=== PATIENT | female | born 1950 | race Caucasian/White ===

== ENCOUNTER 2020-11-27 13:41 | Inpatient (IN) ==
--- NOTE | 2020-11-27 14:15 | DR.SOBA ---
HPI Time Seen Time Seen by Provider: 11/27/20 13:59 Complaints Chief Complaint Doctors Comments: pt diagnosed with COVID 19 + is here with general malaise fever cough(dry) myalgias and SOB all sx increase with exertion improve with rest COVID-19 Coronavirus risk:travel/contact w/high risk person: No Has patient experienced Coronavirus symptoms: No PMH PMH Past Medical History: Arthritis, Depression, Diabetes, GERD and Hypertension Past Surgical History: Yes Surgical History: , Cholecystectomy and Hysterectomy Family History Family Medical History: Diabetes Mellitus and Cancer Social History Do you use any recreational Drugs:: No Travel Risk Coronavirus risk:travel/contact w/high risk person: No Has patient experienced Coronavirus symptoms: No ROS Review of Systems Constitutional: Chills, Diaphoresis, Fever, Malaise, Weakness, Irritable, Fatigue and Loss of Appetite Eyes: No Symptoms Reported ENTM: No Symptoms Reported Respiratoy: Productive Cough and Short of Breath; negative Hemoptysis Cardiovascular: No Symptoms Reported Gastrointestinal/Abdominal: Food Intolerance Genitourinary: No Symptoms Reported Neurological: No Symptoms Reported Musculoskeletal: Muscle Pain Integumentary: No Symptoms Reported Hematologic/Lymphatic: No Symptoms Reported Endocrine: No Symptoms Reported Psychiatric: Depression All Other Systems: Reviewed and Negative PE Vital Signs Vitals: Temperature 97.2 F Pulse Rate 115 Respiratory Rate 20 Blood Pressure [Left Arm] 113/63 Blood Pressure [Right Arm] 100/55 Blood Pressure 118/70 O2 Sat by Pulse Oximetry 90 General Limitations: No Limitations General Appearance: Alert, In No Apparent Distress and Lethargic Head Head Exam: Normal Inspection, Atraumatic and Normocephalic Eyes Eye exam: Normal Appearance, PERRL and EOMI ENT ENT Exam: Normal Exam, Normal Oropharynx, Normal External Ear Exam and Mucous Membranes Moist Neck Neck Exam: Normal Inspection, Full ROM and Trachea Midline Chest Chest Inspection: Normal Inspection and Symmetric Chest Wall Rise; negative Tenderness Respiratory Respiratory Exam: Normal Lung Sounds Bilat; negative Accessory Muscle Use and Chest Wall Tenderness Respiratory Exam: Bilateral: Clear to Auscultation Cardiovascular Cardiovascular Exam: Regular Rate, Normal Rhythm and Normal Heart Sounds Abdominal Exam Abdominal Exam: Normal Inspection, Normal Bowel Sounds and Soft; negative Distention and Tenderness Extremities Extremities Exam: Normal Inspection and Full ROM; negative Tenderness and Joint Swelling Back Back Exam: Normal Inspection and Full ROM Neurologic Neurological Exam: Alert and Oriented X3 Psychiatric Psychiatric Exam: Normal Affect, Anxious and Flat Affect ROR Labs Reviewed Result Diagrams: 11/27/20 14:40 11/27/20 14:40 Laboratory: WBC 11.6 X10^3/uL (3.6-10.0) H 11/27/20 14:40 RBC 4.64 X10^6/uL (3.5-5.4) 11/27/20 14:40 Hgb 13.4 g/dL (12.0-16.0) 11/27/20 14:40 Hct 40.3 % (36.0-47.0) 11/27/20 14:40 MCV 86.8 fL (80.0-100.0) 11/27/20 14:40 MCH 28.8 pg (27.0-34.0) 11/27/20 14:40 MCHC 33.2 g/dL (33.0-35.0) 11/27/20 14:40 RDW 12.5 % (11.6-16.5) 11/27/20 14:40 Plt Count 191 X10^3/uL (150.0-450.0) 11/27/20 14:40 MPV 9.1 fL (7.4-11.0) 11/27/20 14:40 Neut % (Auto) 86.1 % (42.0-75.0) H 11/27/20 14:40 Lymph % (Auto) 10.1 % (21.0-51.0) L 11/27/20 14:40 [place] % (Auto) 3.6 % (0.0-13.0) 11/27/20 14:40 Eos % (Auto) 0.0 % (0.9-2.9) L 11/27/20 14:40 Baso % (Auto) 0.2 % (0.2-1.0) 11/27/20 14:40 Neut # (Auto) 10.0 x10^3/uL (2.2-4.8) H 11/27/20 14:40 Lymph # (Auto) 1.2 X10^3/uL (1.3-2.9) L 11/27/20 14:40 [place] # (Auto) 0.4 x10^3/uL (0.3-0.8) 11/27/20 14:40 Eos # (Auto) 0.0 x10^3/uL (0.0-0.2) 11/27/20 14:40 Baso # (Auto) 0.0 X10^3/uL (0.0-0.1) 11/27/20 14:40 Absolute Nucleated RBC 0.0 /100WBC 11/27/20 14:40 PT 12.6 SECONDS (11.8-14.3) 11/27/20 14:40 INR Target Range - 11/27/20 14:40 INR 0.97 (0.8-1.3) 11/27/20 14:40 APTT 24.1 SECONDS (22.9-36.5) 11/27/20 14:40 PTT Comment - 11/27/20 14:40 D-Dimer 1.32 ug/ml (0.0-0.57) H* 11/27/20 14:40 Sample Site Rra 11/27/20 15:00 ABG pH 7.490 (7.35-7.45) H 11/27/20 15:00 ABG pCO2 40.0 mmHg (35.0-45.0) 11/27/20 15:00 ABG pO2 50.0 mmHg (80.0-100.0) L 11/27/20 15:00 ABG HCO3 30.5 mmol/L (22-26) H* 11/27/20 15:00 ABG O2 Saturation 88.0 % (90-100) L 11/27/20 15:00 ABG Base Excess 6.6 mmol/L (-2.0-2.0) H 11/27/20 15:00 Trent Test Pos 11/27/20 15:00 A-a Gradient 50.0 mmHg 11/27/20 15:00 FiO2 21.0 11/27/20 15:00 Blood Gas Comments Pt thea well eb 11/27/20 15:00 Sodium 130 mmol/L (136-145) L 11/27/20 14:40 Corrected Sodium 134 mmol/L (136-145) L 11/27/20 14:40 Potassium 3.8 mmol/L (3.5-5.1) 11/27/20 14:40 Chloride 93 mmol/L (98-107) L 11/27/20 14:40 Carbon Dioxide 29.4 mmol/L (21-32) 11/27/20 14:40 BUN 18 mg/dL (7-18) 11/27/20 14:40 Creatinine 0.93 mg/dL (0.55-1.02) 11/27/20 14:40 Est GFR (MDRD) Af Amer > 60 (>60) 11/27/20 14:40 Est GFR (MDRD) Non-Af > 60 (>60) 11/27/20 14:40 Glucose 286 mg/dL (65-99) H 11/27/20 14:40 Lactic Acid 2.4 mmol/L (0.4-2.0) H 11/27/20 14:40 Calcium 9.1 mg/dL (8.5-10.1) 11/27/20 14:40 Corrected Calcium 10.1 mg/dL (8.5-10.1) 11/27/20 14:40 Magnesium 1.5 mg/dL (1.7-2.9) L 11/27/20 14:40 Ferritin 1422 ng/mL (8-252) H 11/27/20 14:40 Total Bilirubin 0.50 mg/dL (0.2-1.0) 11/27/20 14:40 AST 23 Units/L (15-37) 11/27/20 14:40 ALT 24 Units/L (12-78) 11/27/20 14:40 Alkaline Phosphatase 70 Units/L (46-116) 11/27/20 14:40 Creatine Kinase 42 Units/L (26-192) 11/27/20 14:40 CK-MB (CK-2) < 1.0 ng/mL (0-4.0) 11/27/20 14:40 CK/CKMB % Calc 2.4 % (<4) 11/27/20 14:40 Troponin I < 0.02 ng/mL (0-1.5) 11/27/20 14:40 C-Reactive Protein 95.30 mg/L (0-3.0) H 11/27/20 14:40 C-Reactive Protein 98.70 mg/L (0-3.0) H 11/27/20 14:40 B-Natriuretic Peptide 46.2 pg/mL (0-79) 11/27/20 14:40 Total Protein 6.6 g/dL (6.4-8.2) 11/27/20 14:40 Albumin 2.8 g/dL (3.4-5.0) L 11/27/20 14:40 Globulin 3.8 g/dL (2.5-4.5) 11/27/20 14:40 Albumin/Globulin Ratio 0.7 Ratio (1.1-2.1) L 11/27/20 14:40 EKG Rate: 106 [place]: Normal Rhythm: ST Block: None Hypertrophy: LAE ST: Normal Opioid Opioid Risk Tool Age (Romain box if 16-45): No History of Preadolescent Sexual Abuse: No Total: 0 Total Score Risk Category: Low Risk Copyright: Sumeet STRICKLAND predicting aberrant behaviors Diagnosis Discharge Problem: Pneumonia due to 2019 novel coronavirus, Hypoxia
[2020-11-27 14:18] VITALS: BMI 22.1
[2020-11-27 15:03] LABS: ABG BASE EXCESS 6.6 mmol/L (-2.0-2.0)
[2020-11-27 15:04] LABS: ABG ALLEN TEST POS; ABG HCO3 30.5 mmol/L (22-26)
[2020-11-27 15:13] LABS: BASOPHILS % (AUTO) 0.2 % (0.2-1.0); HEMATOCRIT 40.3 % (36.0-47.0); HEMOGLOBIN 13.4 g/dL (12.0-16.0); LYMPHOCYTES # (AUTO) 1.2 X10^3/uL (1.3-2.9); LYMPHOCYTES % (AUTO) 10.1 % (21.0-51.0); MEAN CORPUSCULAR HEMOGLOBIN 28.8 pg (27.0-34.0); MEAN CORPUSCULAR HGB CONC 33.2 g/dL (33.0-35.0); MEAN CORPUSCULAR VOLUME 86.8 fL (80.0-100.0); MEAN PLATELET VOLUME 9.1 fL (7.4-11.0); MONOCYTES # (AUTO) 0.4 x10^3/uL (0.3-0.8); MONOCYTES % (AUTO) 3.6 % (0.0-13.0); NEUTROPHILS % (AUTO) 86.1 % (42.0-75.0); PLATELET COUNT 191 X10^3/uL (150.0-450.0); RED BLOOD COUNT 4.64 X10^6/uL (3.5-5.4); RED CELL DISTRIBUTION WIDTH 12.5 % (11.6-16.5); WHITE BLOOD COUNT 11.6 X10^3/uL (3.6-10.0)
--- NOTE | 2020-11-27 15:29 | RAD ---
HISTORYPT C/O TESTING POSTIVE FOR COVID, 2 WEEKS AGO . PT C/O SOB, CCC, PT STATES " I THINKS IT'S IN HER CHEST "STUDYCHEST, 1 [id number]/06/2020 thoracic spine CTFINDINGSCardiomediastinal silhouette within normal limits. Lungs mildly underinflated. There are multifocal bilateral interstitial opacities and ground-glass opacities. No dense consolidation, overt failure, sizable effusion, or visible pneumothorax. Irregular periosteal reaction with central lucency of the left humerus midshaft.IMPRESSIONMultifocal bilateral interstitial and ground-glass opacities are suspicious for COVID-19.Irregular lesion of the left humerus midshaft is probably a remote fracture however clinical correlation is needed as there is central lucency, and neoplasm would be difficult to exclude.Electronically signed by: Raul Rajput (Nov 27, 2020 15:27:49)
[2020-11-27] MEDS ORDERED: VENTOLIN or PROAIR HFA IN ONE (15:37)
[2020-11-27] MEDS ORDERED: ROCEPHIN 1 GRAM IV PREMIX 1 G/50 ML IV.SOLN. IV ONE ×2 (15:37→16:04)
[2020-11-27 15:39] LABS: ALANINE AMINOTRANSFERASE 24 Units/L (12-78); ALBUMIN 2.8 g/dL (3.4-5.0); ALKALINE PHOSPHATASE 70 Units/L (46-116); ASPARTATE AMINO TRANSFERASE 23 Units/L (15-37); BLOOD UREA NITROGEN 18 mg/dL (7-18); CALCIUM 9.1 mg/dL (8.5-10.1); CARBON DIOXIDE 29.4 mmol/L (21-32); CHLORIDE 93 mmol/L (98-107); CKMB % 2.4 % (<4); COR CA(FOR HYPOALB) 10.1 mg/dL (8.5-10.1); COR NA(FOR HYPERGLY) 134 mmol/L (136-145); CREATINE KINASE 42 Units/L (26-192); CREATINE KINASE MB < 1.0 ng/mL (0-4.0); CREATININE 0.93 mg/dL (0.55-1.02); MAGNESIUM 1.5 mg/dL (1.7-2.9); SODIUM 130 mmol/L (136-145); TOTAL PROTEIN 6.6 g/dL (6.4-8.2); TROPONIN I < 0.02 ng/mL (0-1.5); eGFR NON BLACK RACES > 60 (>60)
[2020-11-27] MEDS ORDERED: MAG-OX TAB PO STA (15:41)
[2020-11-27] MEDS ORDERED: NS 250 ML IV 0 ML IV ONE (16:01)
[2020-11-27] MEDS ORDERED: NS 250 ML IV 250 ML IV ONE ×3 (16:05→21:50)
[2020-11-27] MEDS ORDERED: NS 100 ML IV 100 ML IV ONE ×2 (16:14→20:27)
[2020-11-27 16:23] LABS: LACTIC ACID 2.4 mmol/L (0.4-2.0)
--- NOTE | 2020-11-27 17:23 | CT ---
HISTORYPT C/O TESTING POSTIVE FOR COVID, 2 WEEKS AGO . PT C/O SOBSTUDYCTA CHESTCOMPARISONNone.TECHNIQUEMultiple axial images of the chest were obtained from the thoracic inlet to the upper abdomen after the administration of IV contrast. 3D reconstructions utilizing axial MIPS imaging was performed and reviewed. Dose reduction techniques including Automated Exposure Control (AEC) and adjustment of mA and kV were utilized.FINDINGSVASCULAR: Suboptimal opacification of the pulmonary arterial vasculature with no gross evidence of pulmonary embolism to the segmental level. Normal opacification of the aorta without aneurysmal dilatation or dissection.MEDIASTINUM: The heart and pericardium are normal. The thyroid is normal.LYMPH NODES: No abnormality pathologic enlargement.AIRWAYS/LUNGS/PLEURA: Moderate ground-glass airspace opacities are seen, compatible with Covid pneumonia. No pneumothorax or large pleural effusion.VISUALIZED ABDOMEN: No acute abnormality. Cholecystectomy.BONES/SOFT TISSUES: No acute abnormality. Multifocal degenerative changes with kyphosis of the thoracic spine. Remote fracture deformity of the left clavicle.IMPRESSION1. No gross CT evidence of pulmonary embolism.2. Moderate ground-glass airspace opacities, compatible with Covid pneumonia.Electronically signed by: Wayne Higuera (Nov 27, 2020 17:21:21)
[2020-11-27] MEDS ORDERED: PEPCID TAB 20 MG ONE (20:25)
[2020-11-27] MEDS ORDERED: ZINC SULFATE ONE (20:25)
[2020-11-27] MEDS ORDERED: VIBRAMYCIN PO ONE (20:25)
[2020-11-27] MEDS ORDERED: REMDESIVIR IV ONE (20:25)
[2020-11-27] MEDS ORDERED: ASCORBIC ACID INJ MULTI-DOSE VIAL IV ONE (20:26)
[2020-11-27] MEDS ORDERED: LOVENOX INJ 30 MG SYR SC ONE (20:26)
[2020-11-27] MEDS: ASCORBIC ACID INJ MULTI-DOSE VIAL 1,500 MG in NS 100 ML IV 100 ML IV SCH (21:00)
[2020-11-27] MEDS: LOVENOX INJ 30 MG SYR SC SCH (21:00)
[2020-11-27] MEDS: VIBRAMYCIN PO SCH (21:00)
[2020-11-27] MEDS: PEPCID TAB 20 MG PO SCH (21:00)
[2020-11-27] MEDS ORDERED: REMDESIVIR 200 MG in NS 250 ML IV 250 ML IV SCH (21:00)
[2020-11-27] MEDS: NS 1000 ML 1,000 ML IV SCH (21:30)
[2020-11-27] MEDS ORDERED: NS 1000 ML 1,000 ML ONE (21:52)
[2020-11-27] MEDS ORDERED: IVERMECTIN PO SCH (23:00)
[2020-11-27] MEDS ORDERED: LIPITOR TAB 40 MG PO SCH (23:00)
[2020-11-27] MEDS ORDERED: ZINC SULFATE PO SCH (23:00)
[2020-11-27] MEDS ORDERED: PEPCID TAB 20 MG PO SCH (23:00)
[2020-11-27] MEDS ORDERED: THIAMINE HCL INJ IVP SCH (23:00)
[2020-11-27] MEDS ORDERED: VITAMIN A PO SCH (23:00)
[2020-11-27] MEDS ORDERED: VITAMIN D (1.25MG) PO SCH (23:00)
[2020-11-27] MEDS ORDERED: VIBRAMYCIN PO SCH (23:00)
[2020-11-27] MEDS ORDERED: HumuLIN R ONE (23:23)
[2020-11-27] MEDS: HumuLIN R SC PRN (23:26)
[2020-11-28] MEDS: ZINC SULFATE PO SCH ×3 (00:36→20:41)
[2020-11-28] MEDS: HumuLIN R SC PRN ×4 (00:38→21:24)
[2020-11-28] MEDS ORDERED: TYLENOL 325 MG TAB PO PRN (00:53)
[2020-11-28] MEDS ORDERED: TYLENOL 325 MG TAB PO ONE (01:04)
[2020-11-28] MEDS ORDERED: NS 100 ML IV 100 ML IV ONE ×4 (02:07→19:31)
[2020-11-28] MEDS ORDERED: ASCORBIC ACID INJ MULTI-DOSE VIAL IV ONE ×2 (02:07→13:45)
[2020-11-28] MEDS: ASCORBIC ACID INJ MULTI-DOSE VIAL 1,500 MG in NS 100 ML IV 100 ML IV SCH (02:14)
[2020-11-28] MEDS ORDERED: ASCORBIC ACID INJ MULTI-DOSE VIAL 1,500 MG in NS 100 ML IV 100 ML IV SCH (03:00)
[2020-11-28] MEDS: THIAMINE HCL INJ IVP SCH ×3 (03:41→20:38)
[2020-11-28] MEDS ORDERED: DUONEB 0.5 MG/3 MG (3 mL) NEB ONE ×2 (06:14→13:23)
[2020-11-28 06:32] LABS: ABG BASE EXCESS 6.6 mmol/L (-2.0-2.0)
[2020-11-28 06:33] LABS: ABG ALLEN TEST POS; ABG HCO3 30.5 mmol/L (22-26)
[2020-11-28 06:50] LABS: BASOPHILS % (AUTO) 0.1 % (0.2-1.0); HEMATOCRIT 36.7 % (36.0-47.0); HEMOGLOBIN 12.4 g/dL (12.0-16.0); LYMPHOCYTES # (AUTO) 1.4 X10^3/uL (1.3-2.9); LYMPHOCYTES % (AUTO) 12.8 % (21.0-51.0); MEAN CORPUSCULAR HEMOGLOBIN 29.2 pg (27.0-34.0); MEAN CORPUSCULAR HGB CONC 33.7 g/dL (33.0-35.0); MEAN CORPUSCULAR VOLUME 86.6 fL (80.0-100.0); MEAN PLATELET VOLUME 9.4 fL (7.4-11.0); MONOCYTES # (AUTO) 0.3 x10^3/uL (0.3-0.8); MONOCYTES % (AUTO) 2.6 % (0.0-13.0); NEUTROPHILS # (AUTO) 9.2 x10^3/uL (2.2-4.8); NEUTROPHILS % (AUTO) 84.5 % (42.0-75.0); PLATELET COUNT 186 X10^3/uL (150.0-450.0); RED BLOOD COUNT 4.24 X10^6/uL (3.5-5.4); RED CELL DISTRIBUTION WIDTH 12.4 % (11.6-16.5); WHITE BLOOD COUNT 10.9 X10^3/uL (3.6-10.0)
--- NOTE | 2020-11-28 06:52 | RAD ---
HISTORYShortness of breathSTUDYChest AP [id number]/30/2020 plain film and CTA chestFINDINGSHeart is upper limits normal in size. No congestive heart failure is noted. Bilateral interstitial, patchy, and confluent ground-glass infiltrates are again identified unchanged when compared with the prior examination. No pleural effusions are identified. Bony thorax is unremarkable.IMPRESSIONNo significant change when compared to the prior examinationElectronically signed by: TOMMY VILLAFUERTE (Nov 28, 2020 06:50:41)
[2020-11-28 07:18] LABS: ALANINE AMINOTRANSFERASE 22 Units/L (12-78); ALBUMIN 2.3 g/dL (3.4-5.0); ALKALINE PHOSPHATASE 66 Units/L (46-116); ASPARTATE AMINO TRANSFERASE 21 Units/L (15-37); BLOOD UREA NITROGEN 13 mg/dL (7-18); CALCIUM 8.7 mg/dL (8.5-10.1); CHLORIDE 99 mmol/L (98-107); COR CA(FOR HYPOALB) 10.1 mg/dL (8.5-10.1); COR NA(FOR HYPERGLY) 136 mmol/L (136-145); CREATININE 0.61 mg/dL (0.55-1.02); SODIUM 135 mmol/L (136-145); TOTAL PROTEIN 5.8 g/dL (6.4-8.2); eGFR NON BLACK RACES > 60 (>60)
[2020-11-28] MEDS ORDERED: DECADRON TAB PO SCH (09:00)
[2020-11-28] MEDS ORDERED: VITAMIN D (1.25MG) PO SCH (09:00)
[2020-11-28] MEDS ORDERED: VITAMIN A PO SCH (09:00)
[2020-11-28] MEDS: PULMICORT NEB TX 0.5 MG NEB SCH ×2 (09:20→20:10)
[2020-11-28] MEDS: ASCORBIC ACID INJ MULTI-DOSE VIAL 1,500 MG in NS 50 ML IV 50 ML IV SCH ×3 (09:20→20:38)
[2020-11-28] MEDS: DECADRON TAB PO SCH (09:20)
[2020-11-28] MEDS: LOVENOX INJ 30 MG SYR SC SCH ×2 (09:20→20:38)
[2020-11-28] MEDS: LIPITOR TAB 40 MG PO SCH (09:20)
[2020-11-28] MEDS: DUONEB 0.5 MG/3 MG (3 mL) NEB SCH ×4 (09:20→20:10)
[2020-11-28] MEDS: TRICOR TAB 160 MG PO SCH (09:21)
[2020-11-28] MEDS: VIBRAMYCIN PO SCH ×2 (09:21→20:42)
[2020-11-28] MEDS: PEPCID TAB 20 MG PO SCH ×2 (09:21→20:42)
[2020-11-28] MEDS: IVERMECTIN PO SCH (13:58)
[2020-11-28] MEDS ORDERED: HumuLIN R ONE ×3 (16:28→21:04)
[2020-11-28] MEDS ORDERED: NS 1000 ML 1,000 ML ONE (17:34)
[2020-11-28] MEDS: ACTOS PO SCH (18:28)
[2020-11-28] MEDS: GLUCOPHAGE XR 24-HR PO SCH ×2 (18:29→21:23)
[2020-11-28] MEDS: NS 1000 ML 1,000 ML IV SCH (18:40)
[2020-11-28] MEDS ORDERED: REMDESIVIR IV ONE (19:30)
[2020-11-28] MEDS ORDERED: LOVENOX INJ 30 MG SYR SC ONE (19:31)
[2020-11-28] MEDS ORDERED: NS 250 ML IV 250 ML IV ONE (19:31)
[2020-11-28] MEDS: REMDESIVIR 100 MG in NS 250 ML IV 250 ML IV SCH (20:40)
[2020-11-29] MEDS: ASCORBIC ACID INJ MULTI-DOSE VIAL 1,500 MG in NS 50 ML IV 50 ML IV SCH ×4 (02:16→21:19)
[2020-11-29 03:47] LABS: ABG ALLEN TEST POS; ABG BASE EXCESS 3.8 mmol/L (-2.0-2.0); ABG HCO3 29.2 mmol/L (22-26)
[2020-11-29 05:01] LABS: BASOPHILS % (AUTO) 0.4 % (0.2-1.0); HEMATOCRIT 34.9 % (36.0-47.0); HEMOGLOBIN 11.8 g/dL (12.0-16.0); LYMPHOCYTES # (AUTO) 0.5 X10^3/uL (1.3-2.9); LYMPHOCYTES % (AUTO) 6.9 % (21.0-51.0); MEAN CORPUSCULAR HEMOGLOBIN 29.6 pg (27.0-34.0); MEAN CORPUSCULAR HGB CONC 33.9 g/dL (33.0-35.0); MEAN CORPUSCULAR VOLUME 87.3 fL (80.0-100.0); MEAN PLATELET VOLUME 8.8 fL (7.4-11.0); MONOCYTES # (AUTO) 0.2 x10^3/uL (0.3-0.8); MONOCYTES % (AUTO) 2.9 % (0.0-13.0); NEUTROPHILS # (AUTO) 6.5 x10^3/uL (2.2-4.8); NEUTROPHILS % (AUTO) 89.8 % (42.0-75.0); PLATELET COUNT 160 X10^3/uL (150.0-450.0); RED CELL DISTRIBUTION WIDTH 12.6 % (11.6-16.5); WHITE BLOOD COUNT 7.2 X10^3/uL (3.6-10.0)
[2020-11-29 05:16] LABS: ALANINE AMINOTRANSFERASE 19 Units/L (12-78); ALKALINE PHOSPHATASE 55 Units/L (46-116); ASPARTATE AMINO TRANSFERASE 23 Units/L (15-37); BLOOD UREA NITROGEN 18 mg/dL (7-18); CALCIUM 8.6 mg/dL (8.5-10.1); CARBON DIOXIDE 27.1 mmol/L (21-32); CHLORIDE 103 mmol/L (98-107); COR CA(FOR HYPOALB) 10.2 mg/dL (8.5-10.1); COR NA(FOR HYPERGLY) 143 mmol/L (136-145); CREATININE 0.85 mg/dL (0.55-1.02); SODIUM 138 mmol/L (136-145); TOTAL PROTEIN 5.7 g/dL (6.4-8.2); eGFR NON BLACK RACES > 60 (>60)
[2020-11-29] MEDS ORDERED: HumuLIN R ONE ×2 (05:52→11:51)
[2020-11-29] MEDS: HumuLIN R SC PRN ×4 (05:54→21:24)
--- NOTE | 2020-11-29 08:13 | RAD ---
HISTORYSOBSTUDYCHEST, 1 [id number]/31/2020.TECHNIQUEAP view of the chestFINDINGSCardiac and mediastinal contours appear stable. Stable bilateral airspace and interstitial opacities. No definite pleural effusion or pneumothorax.IMPRESSIONNo significant change.Electronically signed by: Sammy Rodriguez (Nov 29, 2020 08:12:13)
[2020-11-29] MEDS: PULMICORT NEB TX 0.5 MG NEB SCH ×2 (08:29→20:45)
[2020-11-29] MEDS: DUONEB 0.5 MG/3 MG (3 mL) NEB SCH ×2 (08:29→13:46)
[2020-11-29] MEDS ORDERED: VITAMIN D3 125 mcg (5,000 UNITS) PO SCH (09:00)
[2020-11-29] MEDS ORDERED: VITAMIN A PO SCH (09:00)
[2020-11-29] MEDS: ACTOS PO SCH (09:32)
[2020-11-29] MEDS: DECADRON TAB PO SCH (09:33)
[2020-11-29] MEDS: LIPITOR TAB 40 MG PO SCH (09:34)
[2020-11-29] MEDS: GLUCOPHAGE XR 24-HR PO SCH ×2 (09:34→21:21)
[2020-11-29] MEDS: TRICOR TAB 160 MG PO SCH (09:35)
[2020-11-29] MEDS: VITAMIN A PO SCH (09:35)
[2020-11-29] MEDS: THIAMINE HCL INJ IVP SCH ×2 (09:35→21:23)
[2020-11-29] MEDS: VIBRAMYCIN PO SCH ×2 (09:35→21:22)
[2020-11-29] MEDS: ZINC SULFATE PO SCH ×2 (09:35→21:21)
[2020-11-29] MEDS: VITAMIN D3 125 mcg (5,000 UNITS) PO SCH (09:35)
[2020-11-29] MEDS: LOVENOX INJ 30 MG SYR SC SCH ×2 (09:36→21:21)
[2020-11-29] MEDS: PEPCID TAB 20 MG PO SCH ×2 (09:36→21:23)
[2020-11-29] MEDS ORDERED: XANAX ONE (15:24)
[2020-11-29] MEDS: XANAX PO SCH ×2 (15:30→21:23)
[2020-11-29] MEDS: XOPENEX 1.25 MG/3 ML NEBULE NEB SCH ×2 (17:35→20:45)
[2020-11-29] MEDS: REMDESIVIR 100 MG in NS 250 ML IV 250 ML IV SCH (21:23)
[2020-11-29] MEDS: COLACE CAP 100 MG PO SCH (22:00)
[2020-11-29] MEDS: NS 1000 ML 1,000 ML IV SCH (22:18)
[2020-11-30] MEDS: ASCORBIC ACID INJ MULTI-DOSE VIAL 1,500 MG in NS 50 ML IV 50 ML IV SCH ×5 (02:11→20:56)
--- NOTE | 2020-11-30 05:39 | RAD ---
HISTORYcovidSTUDYAP [id number]/01/2021FINDINGSSimilar heart size and contour. Bilateral pulmonary infiltrates are again noted, slightly improved in the right upper lobe. There is no new areas of involvement. No pleural fluid or extrapulmonary air.IMPRESSIONPersistent bilateral pneumonia with slight improvement in the right upper lung.Electronically signed by: ILIA ODONNELL (Nov 30, 2020 05:38:18)
[2020-11-30] MEDS: HumuLIN R SC PRN ×4 (05:40→21:20)
[2020-11-30 07:11] LABS: ALANINE AMINOTRANSFERASE 21 Units/L (12-78); ALKALINE PHOSPHATASE 72 Units/L (46-116); ASPARTATE AMINO TRANSFERASE 26 Units/L (15-37); BASOPHILS % (AUTO) 0.1 % (0.2-1.0); BLOOD UREA NITROGEN 25 mg/dL (7-18); CALCIUM 8.5 mg/dL (8.5-10.1); CARBON DIOXIDE 24.7 mmol/L (21-32); CHLORIDE 103 mmol/L (98-107); COR CA(FOR HYPOALB) 10.1 mg/dL (8.5-10.1); COR NA(FOR HYPERGLY) 142 mmol/L (136-145); CREATININE 0.76 mg/dL (0.55-1.02); HEMATOCRIT 33.5 % (36.0-47.0); HEMOGLOBIN 11.6 g/dL (12.0-16.0); LYMPHOCYTES # (AUTO) 0.6 X10^3/uL (1.3-2.9); LYMPHOCYTES % (AUTO) 5.6 % (21.0-51.0); MEAN CORPUSCULAR HEMOGLOBIN 30.1 pg (27.0-34.0); MEAN CORPUSCULAR HGB CONC 34.6 g/dL (33.0-35.0); MEAN CORPUSCULAR VOLUME 87.1 fL (80.0-100.0); MEAN PLATELET VOLUME 9.1 fL (7.4-11.0); MONOCYTES # (AUTO) 0.3 x10^3/uL (0.3-0.8); MONOCYTES % (AUTO) 2.9 % (0.0-13.0); NEUTROPHILS # (AUTO) 9.3 x10^3/uL (2.2-4.8); NEUTROPHILS % (AUTO) 91.4 % (42.0-75.0); PLATELET COUNT 232 X10^3/uL (150.0-450.0); RED BLOOD COUNT 3.85 X10^6/uL (3.5-5.4); SODIUM 136 mmol/L (136-145); TOTAL PROTEIN 5.6 g/dL (6.4-8.2); WHITE BLOOD COUNT 10.1 X10^3/uL (3.6-10.0); eGFR NON BLACK RACES > 60 (>60)
[2020-11-30 08:08] LABS: BAND NEUTROPHILS % 8 % (0-10); PLATELET MORPHOLOGY COMMENT NORMAL (NORMAL)
[2020-11-30] MEDS: PULMICORT NEB TX 0.5 MG NEB SCH ×2 (09:12→21:17)
[2020-11-30] MEDS: XOPENEX 1.25 MG/3 ML NEBULE NEB SCH ×4 (09:12→21:17)
[2020-11-30] MEDS: VITAMIN D3 125 mcg (5,000 UNITS) PO SCH (09:28)
[2020-11-30] MEDS: ZINC SULFATE PO SCH ×2 (09:28→21:02)
[2020-11-30] MEDS: VITAMIN A PO SCH (09:29)
[2020-11-30] MEDS: VIBRAMYCIN PO SCH ×2 (09:30→21:02)
[2020-11-30] MEDS: LIPITOR TAB 40 MG PO SCH (09:30)
[2020-11-30] MEDS: THIAMINE HCL INJ IVP SCH ×3 (09:30→21:00)
[2020-11-30] MEDS: TRICOR TAB 160 MG PO SCH (09:30)
[2020-11-30] MEDS: PEPCID TAB 20 MG PO SCH ×2 (09:30→21:00)
[2020-11-30] MEDS: DECADRON TAB PO SCH (09:31)
[2020-11-30] MEDS: ACTOS PO SCH (09:31)
[2020-11-30] MEDS: GLUCOPHAGE XR 24-HR PO SCH ×2 (09:31→20:57)
[2020-11-30] MEDS: LOVENOX INJ 30 MG SYR SC SCH ×2 (09:31→20:58)
[2020-11-30] MEDS: IVERMECTIN PO SCH ×2 (09:32→13:14)
[2020-11-30] MEDS: XANAX PO SCH ×2 (11:03→21:20)
[2020-11-30] MEDS: NS 1000 ML 1,000 ML IV SCH (18:24)
[2020-11-30] MEDS: COLACE CAP 100 MG PO SCH (20:56)
[2020-11-30] MEDS: REMDESIVIR 100 MG in NS 250 ML IV 250 ML IV SCH (21:00)
[2020-12-01] MEDS: ASCORBIC ACID INJ MULTI-DOSE VIAL 1,500 MG in NS 50 ML IV 50 ML IV SCH ×2 (03:07→10:00)
[2020-12-01] MEDS: HumuLIN R SC PRN (05:33)
[2020-12-01 06:45] LABS: BASOPHILS % (AUTO) 0.4 % (0.2-1.0); HEMATOCRIT 35.4 % (36.0-47.0); HEMOGLOBIN 11.7 g/dL (12.0-16.0); LYMPHOCYTES # (AUTO) 0.5 X10^3/uL (1.3-2.9); LYMPHOCYTES % (AUTO) 5.2 % (21.0-51.0); MEAN CORPUSCULAR HEMOGLOBIN 29.5 pg (27.0-34.0); MEAN CORPUSCULAR HGB CONC 33.1 g/dL (33.0-35.0); MEAN PLATELET VOLUME 9.1 fL (7.4-11.0); MONOCYTES # (AUTO) 0.3 x10^3/uL (0.3-0.8); MONOCYTES % (AUTO) 3.5 % (0.0-13.0); NEUTROPHILS # (AUTO) 8.9 x10^3/uL (2.2-4.8); NEUTROPHILS % (AUTO) 90.9 % (42.0-75.0); PLATELET COUNT 254 X10^3/uL (150.0-450.0); RED BLOOD COUNT 3.98 X10^6/uL (3.5-5.4); RED CELL DISTRIBUTION WIDTH 13.1 % (11.6-16.5); WHITE BLOOD COUNT 9.8 X10^3/uL (3.6-10.0)
[2020-12-01 06:58] LABS: ALANINE AMINOTRANSFERASE 26 Units/L (12-78); ALKALINE PHOSPHATASE 72 Units/L (46-116); ASPARTATE AMINO TRANSFERASE 35 Units/L (15-37); BLOOD UREA NITROGEN 29 mg/dL (7-18); CALCIUM 8.6 mg/dL (8.5-10.1); CARBON DIOXIDE 24.7 mmol/L (21-32); CHLORIDE 105 mmol/L (98-107); COR CA(FOR HYPOALB) 10.2 mg/dL (8.5-10.1); COR NA(FOR HYPERGLY) 144 mmol/L (136-145); SODIUM 139 mmol/L (136-145); TOTAL PROTEIN 5.2 g/dL (6.4-8.2); eGFR NON BLACK RACES > 60 (>60)
[2020-12-01 07:46] LABS: BAND NEUTROPHILS % 2 % (0-10); PLATELET MORPHOLOGY COMMENT NORMAL (NORMAL)
[2020-12-01] MEDS ORDERED: NS 100 ML IV 0 ML IV ONE (08:14)
[2020-12-01] MEDS ORDERED: NS 50 ML IV 50 ML IV ONE (08:23)
[2020-12-01] MEDS: XOPENEX 1.25 MG/3 ML NEBULE NEB SCH ×2 (09:05→12:20)
[2020-12-01] MEDS: PULMICORT NEB TX 0.5 MG NEB SCH (09:05)
[2020-12-01] MEDS: GLUCOPHAGE XR 24-HR PO SCH (10:00)
[2020-12-01] MEDS: TRICOR TAB 160 MG PO SCH (10:00)
[2020-12-01] MEDS: DECADRON TAB PO SCH (10:00)
[2020-12-01] MEDS: ZINC SULFATE PO SCH (10:00)
[2020-12-01] MEDS: PEPCID TAB 20 MG PO SCH (10:00)
[2020-12-01] MEDS: VITAMIN A PO SCH (10:00)
[2020-12-01] MEDS: LIPITOR TAB 40 MG PO SCH (10:00)
[2020-12-01] MEDS: ACTOS PO SCH (10:00)
[2020-12-01] MEDS: VITAMIN D3 125 mcg (5,000 UNITS) PO SCH (10:00)
[2020-12-01] MEDS: LOVENOX INJ 30 MG SYR SC SCH (10:34)
[2020-12-01] MEDS: THIAMINE HCL INJ IVP SCH (10:52)
[2020-12-01] MEDS: VIBRAMYCIN PO SCH (10:53)
[2020-12-01] MEDS: XANAX PO SCH (12:14)
[2020-12-01 13:41] VITALS: BP 123/55
--- NOTE | 2020-12-03 08:02 | RAD ---
HISTORYSOB, COVID +STUDYCHEST, 1 [id number]/02/2021FINDINGSBilateral pneumonia not significantly changed. No pleural effusion or pneumothorax.Heart size is normal.Old healed left clavicle fracture. Old fracture in the mid left hu merus.EKG leads are noted.IMPRESSION1. Unchanged pneumoniaElectronically signed by: Hector Muse (Dec 03, 2020 08:00:57)
== END 2020-12-01 14:05 | disposition home health service (06) | DRG 177 ==
LOC: ER 13:41 → OBS 17:58 → MED/SURG 11-29 15:56
PROVIDERS: ADMIT Internal Medicine; ATTEND Internal Medicine
DX: R06.02 Shortness of breath; I10 Essential (primary) hypertension; R79.89 Other specified abnormal findings of blood chemistry; R79.82 Elevated C-reactive protein (CRP); U07.1 COVID-19; R26.89 Other abnormalities of gait and mobility; J12.89 Other viral pneumonia; E11.65 Type 2 diabetes mellitus with hyperglycemia; K21.9 Gastro-esophageal reflux disease without esophagitis